=== PATIENT | female | born 1990 | race American Indian/Alaskan Native ===

== ENCOUNTER 2016-04-04 20:47 | Inpatient (IN) | payer MEDICAID, OTHER ==
[2016-04-04] MEDS ORDERED: HALDOL IV ONE (21:05)
[2016-04-04 22:43] LABS: Alanine Aminotransferase 15 units/L (7-56); Albumin 4.6 g/dL (3.9-5); Albumin/Globulin Ratio 1.2 %; Alkaline Phosphatase 66 units/L (35-129); Anion Gap 23 mmol/L; BUN/Creatinine Ratio 14.16; Bilirubin,Total 0.5 mg/dL (0.1-1.2); Blood Urea Nitrogen 17 mg/dL (7-17); Calcium 9.4 mg/dL (8.4-10.2); Carbon Dioxide 25 mmol/L (22-30); Glucose 107 mg/dL (65-100); Sodium 137 mmol/L (137-145); Total Protein 8.4 g/dL (6.3-8.2)
[2016-04-04 22:47] LABS: Potassium 2.4 mmol/L (3.6-5.0)
[2016-04-04] MEDS ORDERED: K-DUR PO ONE (23:01)
[2016-04-04 23:10] LABS: Basophils % (Auto) 0.9 % (0.0-1.8); Eosinophils % (Auto) 0.6 % (0.0-4.3); Hematocrit 40.6 % (30.3-42.9); Hemoglobin 13.4 gm/dl (10.1-14.3); Mean Corpuscular HGB Conc 33 % (30-34); Mean Corpuscular Hemoglobin 27 pg (28-32); Mean Corpuscular Volume 82 fl (79-97); Platelet Count 273 K/mm3 (140-440); Red Blood Count 4.95 M/mm3 (3.65-5.03); Red Cell Distribution Width 16.5 % (13.2-15.2); White Blood Count 4.5 K/mm3 (4.5-11.0)
[2016-04-05 00:01] LABS: Urine Drugs of Abuse Note Disclamer
[2016-04-05] MEDS: KCL 10MEQ/100ML 10 MEQ/100 ML BAG IV SCH ×4 (00:04→08:21)
--- NOTE | 2016-04-05 00:11 | Emergency Department Report ---
ED Altered Mental Status HPI - General Chief Complaint: Altered Mental Status Stated Complaint: ALTERED Time Seen by Provider: 04/04/16 21:00 Source: family, EMS Mode of arrival: Stretcher Limitations: Altered Mental Status - History of Present Illness Initial Comments: 26-year-old female presents to the emergency department via EMS for evaluation of syncope and altered mental status. History is obtained from the patient's family due to her clinical condition. Family states that the patient has not been taking her medications. Patient has a history of breast cancer and has undergone radiation treatment. Recently, they state the patient had a mental breakdown and was admitted to [facility] for approximately one week. Father states that the patient has been sleeping most of today. At approximately 8:00 he attempted to get the patient up to take her medication. Patient was refusing to take her Invega, but instead was reaching for a sleeping pill. Father states that the patient was standing up and then suddenly lost consciousness. Patient regained consciousness shortly thereafter, but was acting confused. EMS was called. They state that the patient was combative. Reportedly, she thought they were taking her for more radiation treatment. Patient was placed in four point restraints by EMS. MD Complaint: altered mental status -: Sudden, This evening Severity: severe Consistency of Symptoms: constant Context: cancer - Related Data Home Medications Medication Instructions Recorded Confirmed Last Taken Escitalopram Oxalate [Lexapro] 5 mg PO QDAY 04/04/16 04/04/16 Unknown Hydrochlorothiazide [HCTZ] 25 mg PO QDAY 04/04/16 04/04/16 Unknown Paliperidone [Invega] 6 mg PO DAILY 04/04/16 04/04/16 Unknown Allergies Allergy/AdvReac Type Severity Reaction Status Date / Time No Known Allergies Allergy Unverified 04/04/16 21:06 ED Review of Systems ROS: Stated complaint: ALTERED Other details as noted in HPI Comment: Unobtainable due to pts medical conditions ED Past Medical Hx - Past Medical History Previous Medical History?: Yes Hx Hypertension: Yes Hx of Cancer: Yes (breast) Hx Psychiatric Treatment: Yes (depression) - Surgical History Past Surgical History?: Yes Additional Surgical History: lumpectomy, breast reduction - Family History Family history: no significant - Social History Smoking Status: Current Some Day Smoker Substance Use Type: None - Medications Home Medications: Home Medications Medication Instructions Recorded Confirmed Last Taken Type Escitalopram Oxalate [Lexapro] 5 mg PO QDAY 04/04/16 04/04/16 Unknown History Hydrochlorothiazide [HCTZ] 25 mg PO QDAY 04/04/16 04/04/16 Unknown History Paliperidone [Invega] 6 mg PO DAILY 04/04/16 04/04/16 Unknown History ED Physical Exam - General Limitations: Altered Mental Status General appearance: alert - Head Head exam: Present: atraumatic, normocephalic - Eye Eye exam: Present: normal appearance, PERRL, EOMI - ENT ENT exam: Present: normal exam, normal orophraynx, mucous membranes moist - Neck Neck exam: Present: normal inspection, full ROM. Absent: tenderness - Respiratory Respiratory exam: Present: normal lung sounds bilaterally. Absent: respiratory distress - Cardiovascular Cardiovascular Exam: Present: normal rhythm, tachycardia, normal heart sounds - GI/Abdominal GI/Abdominal exam: Present: soft, normal bowel sounds. Absent: distended, tenderness - Extremities Exam Extremities exam: Present: normal inspection, full ROM. Absent: tenderness - Back Exam Back exam: Present: normal inspection, full ROM. Absent: tenderness - Neurological Exam Neurological exam: Present: alert, other (patient is moving all extremities but not following commands). Absent: motor sensory deficit - Skin Skin exam: Present: warm, dry, intact ED Course Vital Signs 04/04/16 21:06 Temperature 98.0 F Pulse Rate 123 H Respiratory 22 Rate Blood Pressure 142/101 O2 Sat by Pulse 100 Oximetry - Reevaluation(s) Reevaluation #1: 04/05/16 00:14 Patient was initially placed in four point restraints due to her combative nature. She was administered 2 mg of IV haloperidol. Patient has since become much more cooperative and has been able to be taken out of restraints. Obtaining labs and head CT. Patient will likely need mental health evaluation once medically cleared. - Lab Data Result diagrams: 04/04/16 22:06 04/04/16 22:06 Lab Results 04/04/16 04/04/16 04/04/16 Range/Units 22:06 22:06 22:06 WBC 4.5 (4.5-11.0) K/mm3 RBC 4.95 (3.65-5.03) M/mm3 Hgb 13.4 (10.1-14.3) gm/dl Hct 40.6 (30.3-42.9) % MCV 82 (79-97) fl MCH 27 L (28-32) pg MCHC 33 (30-34) % RDW 16.5 H (13.2-15.2) % Plt Count 273 (140-440) K/mm3 Lymph % (Auto) 11.9 L (13.4-35.0) % [place] % (Auto) 10.8 H (0.0-7.3) % Eos % (Auto) 0.6 (0.0-4.3) % Baso % (Auto) 0.9 (0.0-1.8) % Lymph # 0.5 L (1.2-5.4) K/mm3 [place] # 0.5 (0.0-0.8) K/mm3 Eos # 0.0 (0.0-0.4) K/mm3 Baso # 0.0 (0.0-0.1) K/mm3 Seg Neutrophils % 75.8 H (40.0-70.0) % Seg Neutrophils # 3.4 (1.8-7.7) K/mm3 Sodium 137 (137-145) mmol/L Potassium 2.4 L* (3.6-5.0) mmol/L Chloride 91.0 L (98-107) mmol/L Carbon Dioxide 25 (22-30) mmol/L Anion Gap 23 mmol/L BUN 17 (7-17) mg/dL Creatinine 1.2 (0.7-1.2) mg/dL Estimated GFR > 60 ml/min BUN/Creatinine Ratio 14.16 % Glucose 107 H (65-100) mg/dL Calcium 9.4 (8.4-10.2) mg/dL Total Bilirubin 0.5 (0.1-1.2) mg/dL AST 18 (5-40) units/L ALT 15 (7-56) units/L Alkaline Phosphatase 66 (35-129) units/L Total Protein 8.4 H (6.3-8.2) g/dL Albumin 4.6 (3.9-5) g/dL Albumin/Globulin Ratio 1.2 % Urine Color (Yellow) Urine Turbidity (Clear) Urine pH (5.0-7.0) Ur Specific [place] (1.003-1.030) Urine Protein (Negative) mg/dL Urine Glucose (UA) (Negative) mg/dL Urine Ketones (Negative) mg/dL Urine Blood (Negative) Urine Nitrite (Negative) Urine Bilirubin (Negative) Urine Urobilinogen (<2.0) mg/dL Ur Leukocyte Esterase (Negative) Urine WBC (Auto) (0.0-6.0) /HPF Urine RBC (Auto) (0.0-6.0) /HPF U Epithel Cells (Auto) (0-13.0) /HPF Urine Bacteria (Auto) (Negative) /HPF Hyaline Casts /LPF Urine Mucus /HPF Urine HCG, Qual (Negative) Plasma/Serum Alcohol < 0.01 (0-0.07) gm% 04/04/16 Range/Units Unknown WBC (4.5-11.0) K/mm3 RBC (3.65-5.03) M/mm3 Hgb (10.1-14.3) gm/dl Hct (30.3-42.9) % MCV (79-97) fl MCH (28-32) pg MCHC (30-34) % RDW (13.2-15.2) % Plt Count (140-440) K/mm3 Lymph % (Auto) (13.4-35.0) % [place] % (Auto) (0.0-7.3) % Eos % (Auto) (0.0-4.3) % Baso % (Auto) (0.0-1.8) % Lymph # (1.2-5.4) K/mm3 [place] # (0.0-0.8) K/mm3 Eos # (0.0-0.4) K/mm3 Baso # (0.0-0.1) K/mm3 Seg Neutrophils % (40.0-70.0) % Seg Neutrophils # (1.8-7.7) K/mm3 Sodium (137-145) mmol/L Potassium (3.6-5.0) mmol/L Chloride (98-107) mmol/L Carbon Dioxide (22-30) mmol/L Anion Gap mmol/L BUN (7-17) mg/dL Creatinine (0.7-1.2) mg/dL Estimated GFR ml/min BUN/Creatinine Ratio % Glucose (65-100) mg/dL Calcium (8.4-10.2) mg/dL Total Bilirubin (0.1-1.2) mg/dL AST (5-40) units/L ALT (7-56) units/L Alkaline Phosphatase (35-129) units/L Total Protein (6.3-8.2) g/dL Albumin (3.9-5) g/dL Albumin/Globulin Ratio % Urine Color Yellow (Yellow) Urine Turbidity Clear (Clear) Urine pH 6.0 (5.0-7.0) Ur Specific [place] 1.024 (1.003-1.030) Urine Protein 30 mg/dl (Negative) mg/dL Urine Glucose (UA) Neg (Negative) mg/dL Urine Ketones 20 (Negative) mg/dL Urine Blood Sm (Negative) Urine Nitrite Neg (Negative) Urine Bilirubin Neg (Negative) Urine Urobilinogen < 2.0 (<2.0) mg/dL Ur Leukocyte Esterase Neg (Negative) Urine WBC (Auto) 3.0 (0.0-6.0) /HPF Urine RBC (Auto) 2.0 (0.0-6.0) /HPF U Epithel Cells (Auto) 5.0 (0-13.0) /HPF Urine Bacteria (Auto) 1+ (Negative) /HPF Hyaline Casts 1 /LPF Urine Mucus Few /HPF Urine HCG, Qual Negative (Negative) Plasma/Serum Alcohol (0-0.07) gm% - EKG Data -: EKG Interpreted by Ga EKG shows normal: sinus rhythm, axis, intervals, QRS complexes, ST-T waves Rate: tachycardia When compared to previous EKG there are: previous EKG unavailable Interpretation: other (sinus tachycardia, otherwise normal ECG) - Radiology Data Radiology results: report reviewed, image reviewed CT of the brain shows no acute intracranial abnormality. - Medical Decision Making Lab and imaging results reviewed and discussed with the patient and family. Patient has significant hypokalemia and is refusing oral medication. Potassium is being replaced intravenously. I have spoken with the hospitalist, who will admit the patient for syncope and potassium replacement. - Differential Diagnosis syncope, psychosis, ICH Critical care attestation.: If time is entered above; I have spent that time in minutes in the direct care of this critically ill patient, excluding procedure time. ED Disposition Clinical Impression: Syncope and collapse, Hypokalemia Disposition: OP ADMITTED IP TO THIS HOSP Is pt being admited?: Yes Condition: Stable Instructions: Syncope (ED) Referrals: PRIMARY CARE, [Primary Care Provider] - 3-5 Days Time of Disposition: 00:16
[2016-04-05 00:16] LABS: Bacteria,Urine 1+ /HPF (Negative); Bilirubin,Urine NEG (Negative); Blood,Urine SM (Negative); Ketones,Urine 20 mg/dL (Negative); Leukocyte Esterase,Urine NEG (Negative); Mucus,Urine FEW /HPF; Nitrite,Urine NEG (Negative); Urobilinogen,Urine < 2.0 mg/dL (<2.0)
--- NOTE | 2016-04-05 00:46 | Cat Scan Report ---
FINAL REPORT PROCEDURE: CT HEAD/BRAIN WO CON TECHNIQUE: Computerized tomography of the head was performed without contrast material. HISTORY: Syncope with altered mental status COMPARISON: No prior studies are available for comparison. FINDINGS: Skull and scalp: Normal. Paranasal sinuses: Mild opacification of the ethmoid and right maxillary sinuses.. Ventricles and subarachnoid spaces: Normal. Cerebrum: No evidence of hemorrhage, acute infarction or mass . Cerebellum and brainstem: No evidence of hemorrhage, acute infarction or mass. Vasculature: Normal. Comments: None. IMPRESSION: There is no evidence of an acute intracranial process
[2016-04-05] MEDS ORDERED: TYLENOL PO PRN (01:06)
[2016-04-05] MEDS ORDERED: DULCOLAX PR PRN (01:06)
[2016-04-05] MEDS ORDERED: MILK OF MAGNESIA PO PRN (01:06)
[2016-04-05] MEDS ORDERED: ZOFRAN IV PRN (01:06)
--- NOTE | 2016-04-05 01:11 | History and Physical Report ---
History of Present Illness Date of examination: 04/05/16 History of present illness: 69-year-old woman with a history of breast cancer, major depression, hypertension was brought to the emergency room because while she was at home lying down, she got up to stand out and had a syncopal episode for less than 10 minutes. Patient denies chest pain, palpitation, shortness of breath, cough, abdominal pain, hematochezia, dysuria, frequency, focal weakness, dysarthria, fever chills , polydipsia polyuria, hot or cold intolerance, easy bruisability, or rash or bleeding from mucosal membrane, rhinorrhea, epistaxis, earache, tinnitus, blurry vision, eye discharge, anxiety, depression. Other review of systems negative PAST SURGICAL HISTORY: Right Partial meniscectomy, left breast reduction SOCIAL HISTORY: admit to smoking, alcohol, no drugs FAMILY HISTORY: Hypertension Medications and Allergies Allergies Allergy/AdvReac Type Severity Reaction Status Date / Time No Known Allergies Allergy Unverified 04/04/16 21:06 Home Medications Medication Instructions Recorded Confirmed Last Taken Type Escitalopram Oxalate [Lexapro] 5 mg PO QDAY 04/04/16 04/04/16 Unknown History Hydrochlorothiazide [HCTZ] 25 mg PO QDAY 04/04/16 04/04/16 Unknown History Paliperidone [Invega] 6 mg PO DAILY 04/04/16 04/04/16 Unknown History Active Meds: Active Medications Acetaminophen (Tylenol) 650 mg PO Q4H PRN PRN Reason: Pain MILD(1-3)/Fever >100.5/COTTON Bisacodyl (Dulcolax) 10 mg OK QDAY PRN PRN Reason: Constipation unrelieved by MOM Enoxaparin Sodium (Lovenox) 40 mg SUB-Q QDAY JEFF Potassium Chloride (Kcl 10meq/100ml) 10 meq in 100 mls @ 100 mls/hr IV Q1H JEFF Stop: 04/05/16 03:44 Last Admin: 04/05/16 00:34 Dose: Not Given Potassium Chloride/Sodium Chloride (Ns/Kcl 40meq) 40 meq in 1,000 mls @ 75 mls/ hr IV DIRECT JEFF Magnesium Hydroxide (Milk Of Magnesia) 30 ml PO Q4H PRN PRN Reason: Constipation Ondansetron HCl (Zofran) 4 mg IV Q8H PRN PRN Reason: N/V unrelieved by Reglan Exam - Physical Exam Narrative exam: Gen. appearance: Patient lying in bed, no apparent distress HEENT: Normocephalic, atraumatic, pupils equally round and reactive to light, extraocular movement intact, and no sclericterus,. No JVD or thyromegaly or nodule,neck supple, no carotid bruit ,mucous membranes moist, no exudate or erythema Heart: S1, S2, regular rate and rhythm Lungs: Clear to auscultation bilaterally, breathing comfortable Abdomen: Positive bowel sounds, nontender, nondistended, no organomegaly Extremity: No edema, cyanosis, clubbing Skin: No rash, nodules, warm, dry Neuro: Oriented 3, cranial nerves II-12 intact, speech is fluent, motor and sensory intact - Constitutional Vitals: Temp Pulse Resp BP Pulse Ox 98.0 F 123 H 22 142/101 100 04/04/16 21:06 04/04/16 21:06 04/04/16 21:06 04/04/16 21:06 04/04/16 21:06 Results - Labs CBC & Chem 7: 04/04/16 22:06 04/04/16 22:06 Labs: Abnormal lab results 04/04/16 04/04/16 Range/Units 22:06 22:06 MCH 27 L (28-32) pg RDW 16.5 H (13.2-15.2) % Lymph % (Auto) 11.9 L (13.4-35.0) % [place] % (Auto) 10.8 H (0.0-7.3) % Lymph # 0.5 L (1.2-5.4) K/mm3 Seg Neutrophils % 75.8 H (40.0-70.0) % Potassium 2.4 L* (3.6-5.0) mmol/L Chloride 91.0 L (98-107) mmol/L Glucose 107 H (65-100) mg/dL Total Protein 8.4 H (6.3-8.2) g/dL - Imaging and Cardiology EKG: image reviewed Chest x-ray: image reviewed CT Scan - head: report reviewed Assessment and Plan Syncope Profound hypokalemia History of breast cancer Admits medicine Check cardiac enzymes, d-dimer, orthostatics Replete potassium, start DVT prophylaxis D-dimer elevated, will check CT chest
[2016-04-05] MEDS ORDERED: NS/KCL 40MEQ 40 MEQ/1,000 ML BAG IV SCH (02:00)
[2016-04-05 02:08] LABS: Creatine Kinase 136 units/L (30-135)
[2016-04-05 02:09] LABS: Creatine Kinase MB < 1.0 ng/mL (0.0-4.0)
--- NOTE | 2016-04-05 02:27 | Admit Criteria Form ---
Admission Criteria Documentation: SYNCOPE Clinical Indications for Admission to Inpatient Care ( Place 'X' for any and all applicable criteria): Admission is indicated for syncope and ANY ONE of the following (1)(2)(3)(4)(5) (6)(7) : [ X]I. Inpatient admission required rather than observation care (Also use Syncope: Observation Care Criteria as appropriate) because of ANY ONE of the following: [ ]a) Hemodynamic instability that is severe or persistent [ ]b) Cardiac arrhythmias of immediate concern identified or strongly suspected (eg, needs electrophysiologic study) [ ]c) Acute coronary syndrome identified (Also use Myocardial Infarction or Angina Criteria form ) [ ]d) Structural cardiac disorder (eg, aortic stenosis) suspected as cause that requires immediate correction [ ]e) Respiratory symptoms (eg, dyspnea, tachypnea) that are severe or persistent [ ]f) Neurologic signs or symptoms that are severe or persistent ( eg, stroke, seizures, altered mental status) [ X]g) Severe electrolyte abnormalities requiring inpatient care [ ]h) Supplemental oxygen or respiratory treatment for over 24 hrs that are performable only in acute inpatient setting [ ]i) IV fluid to replace significant ongoing (eg, for over 24 hrs ) losses (>3 L/m2 per day) [ ]j) Continuous intravenous infusion of anticoagulation, platelet inhibitor, vasoactive, or antiarrhythmic medication(15)(16) [ ]k) Pulmonary artery catheter monitoring [ ]l) Temporary pacemaker placement(17) [ ]m) Emergent cardioversion(18) [ ]n) Other conditions, treatment or monitoring requiring inpatient admission [ ]II. Suspicion of imminently dangerous cause (eg, rare causes like pericardial tamponade, pulmonary embolism) [ ]III. Syncope causing severe injury requiring hospitalization Extended stay beyond goal length of stay may be needed for(28) [ ]a) Dangerous arrhythmia(15)(23)(27)(29) [ ]b) Myocardial ischemia [ ]c) Seizure disorder [ ]d) Syncope-related injuries The original [employer] content created by [employer] has been revised. The portions of the content which have been revised are identified through the use of italic text or in bold, and [employer] D [employer] has neither reviewed nor approved the modified material. All other unmodified content is copyright [employer] [facility] [employer]. Please see references footnoted in the original [facility] edition 2016 Admission Criteria Met: Yes
[2016-04-05] MEDS ORDERED: NACL ONE (07:05)
[2016-04-05 08:22] LABS: Creatine Kinase MB 1.1 ng/mL (0.0-4.0)
[2016-04-05 08:23] LABS: Creatine Kinase 151 units/L (30-135)
--- NOTE | 2016-04-05 08:38 | Cat Scan Report ---
FINAL REPORT PROCEDURE: CT ANGIO CHEST TECHNIQUE: Computerized tomographic angiography of the chest was performed after the IV injection of iodinated nonionic contrast including image processing. The image data was postprocessed using 2-dimensional multiplanar reformatted (MPR) and 3-dimensional (MIP and/or volume rendered) techniques. HISTORY: pe protocol. Syncope. Altered mental disturbance COMPARISON: No prior studies are available for comparison. FINDINGS: Heart and pericardium: Normal. Thoracic aorta: Normal. Pulmonary vasculature: Normal. Lymph nodes: No enlarged thoracic lymph nodes. Lungs: Normal. Pleural space: No effusion, thickening, or pneumothorax. Musculoskeletal structures: No significant abnormality. Upper abdominal structures: No significant abnormality. IMPRESSION: Normal Examination
--- NOTE | 2016-04-05 11:01 | Progress Note ---
Assessment and Plan Assessment and plan: 1. Syncope. Follow-up carotid ultrasound and echocardiogram. CT scan of the head negative. 2. Profound hypokalemia. Replete potassium. 3. History of breast cancer 4. Elevated d-dimer. CTA of the chest negative. History Interval history: 69-year-old woman with a history of breast cancer, major depression, hypertension was brought to the emergency room because while she was at home lying down, she got up to stand out and had a syncopal episode for less than 10 minutes. Hospitalist Physical - Constitutional Vitals: Temp Pulse Resp BP Pulse Ox 98.0 F 99 H 16 120/77 97 04/04/16 21:06 04/05/16 08:22 04/05/16 02:03 04/05/16 02:03 04/05/16 09:52 General appearance: Present: no acute distress, well-nourished - EENT Eyes: Present: PERRL, EOM intact ENT: hearing intact, clear oral mucosa, dentition normal - Neck Neck: Present: supple, normal ROM - Respiratory Respiratory effort: normal Respiratory: bilateral: CTA - Cardiovascular Rhythm: regular Heart Sounds: Present: S1 & S2. Absent: gallop, rub - Extremities Extremities: no ischemia, No edema, Full ROM - Abdominal General gastrointestinal: soft, non-tender, non-distended, normal bowel sounds - Integumentary Integumentary: Present: clear, warm, dry - Neurologic Neurologic: CNII-XII intact, moves all extremities Results - Labs CBC & Chem 7: 04/04/16 22:06 04/04/16 22:06 Labs: Laboratory Last Values WBC 4.5 K/mm3 (4.5-11.0) 04/04/16 22:06 RBC 4.95 M/mm3 (3.65-5.03) 04/04/16 22:06 Hgb 13.4 gm/dl (10.1-14.3) 04/04/16 22:06 Hct 40.6 % (30.3-42.9) 04/04/16 22:06 MCV 82 fl (79-97) 04/04/16 22:06 MCH 27 pg (28-32) L 04/04/16 22:06 MCHC 33 % (30-34) 04/04/16 22:06 RDW 16.5 % (13.2-15.2) H 04/04/16 22:06 Plt Count 273 K/mm3 (140-440) 04/04/16 22:06 Lymph % (Auto) 11.9 % (13.4-35.0) L 04/04/16 22:06 [place] % (Auto) 10.8 % (0.0-7.3) H 04/04/16 22:06 Eos % (Auto) 0.6 % (0.0-4.3) 04/04/16 22:06 Baso % (Auto) 0.9 % (0.0-1.8) 04/04/16 22:06 Lymph # 0.5 K/mm3 (1.2-5.4) L 04/04/16 22:06 [place] # 0.5 K/mm3 (0.0-0.8) 04/04/16 22:06 Eos # 0.0 K/mm3 (0.0-0.4) 04/04/16 22:06 Baso # 0.0 K/mm3 (0.0-0.1) 04/04/16 22:06 Seg Neutrophils % 75.8 % (40.0-70.0) H 04/04/16 22:06 Seg Neutrophils # 3.4 K/mm3 (1.8-7.7) 04/04/16 22:06 D-Dimer 329.25 ng/mlDDU (0-234) H 04/05/16 01:27 Sodium 137 mmol/L (137-145) 04/04/16 22:06 Potassium 2.4 mmol/L (3.6-5.0) L* 04/04/16 22:06 Chloride 91.0 mmol/L (98-107) L 04/04/16 22:06 Carbon Dioxide 25 mmol/L (22-30) 04/04/16 22:06 Anion Gap 23 mmol/L 04/04/16 22:06 BUN 17 mg/dL (7-17) 04/04/16 22:06 Creatinine 1.2 mg/dL (0.7-1.2) 04/04/16 22:06 Estimated GFR > 60 ml/min 04/04/16 22:06 BUN/Creatinine Ratio 14.16 % 04/04/16 22:06 Glucose 107 mg/dL (65-100) H 04/04/16 22:06 Calcium 9.4 mg/dL (8.4-10.2) 04/04/16 22:06 Total Bilirubin 0.5 mg/dL (0.1-1.2) 04/04/16 22:06 AST 18 units/L (5-40) 04/04/16 22:06 ALT 15 units/L (7-56) 04/04/16 22:06 Alkaline Phosphatase 66 units/L (35-129) 04/04/16 22:06 Total Creatine Kinase 151 units/L (30-135) H 04/05/16 07:16 CK-MB (CK-2) 1.1 ng/mL (0.0-4.0) 04/05/16 07:16 CK-MB (CK-2) Rel Index 0.7 (0-4) 04/05/16 07:16 Troponin T < 0.010 ng/mL (0.00-0.029) 04/05/16 07:16 Total Protein 8.4 g/dL (6.3-8.2) H 04/04/16 22:06 Albumin 4.6 g/dL (3.9-5) 04/04/16 22:06 Albumin/Globulin Ratio 1.2 % 04/04/16 22:06 Urine Color Yellow (Yellow) 04/04/16 Unknown Urine Turbidity Clear (Clear) 04/04/16 Unknown Urine pH 6.0 (5.0-7.0) 04/04/16 Unknown Ur Specific [place] 1.024 (1.003-1.030) 04/04/16 Unknown Urine Protein 30 mg/dl mg/dL (Negative) 04/04/16 Unknown Urine Glucose (UA) Neg mg/dL (Negative) 04/04/16 Unknown Urine Ketones 20 mg/dL (Negative) 04/04/16 Unknown Urine Blood Sm (Negative) 04/04/16 Unknown Urine Nitrite Neg (Negative) 04/04/16 Unknown Urine Bilirubin Neg (Negative) 04/04/16 Unknown Urine Urobilinogen < 2.0 mg/dL (<2.0) 04/04/16 Unknown Ur Leukocyte Esterase Neg (Negative) 04/04/16 Unknown Urine WBC (Auto) 3.0 /HPF (0.0-6.0) 04/04/16 Unknown Urine RBC (Auto) 2.0 /HPF (0.0-6.0) 04/04/16 Unknown U Epithel Cells (Auto) 5.0 /HPF (0-13.0) 04/04/16 Unknown Urine Bacteria (Auto) 1+ /HPF (Negative) 04/04/16 Unknown Hyaline Casts 1 /LPF 04/04/16 Unknown Urine Mucus Few /HPF 04/04/16 Unknown Urine HCG, Qual Negative (Negative) 04/04/16 Unknown Urine Opiates Screen Presumptive negative 04/04/16 Unknown Urine Methadone Screen Presumptive negative 04/04/16 Unknown Ur Barbiturates Screen Presumptive negative 04/04/16 Unknown Ur Phencyclidine Scrn Presumptive negative 04/04/16 Unknown Ur Amphetamines Screen Presumptive negative 04/04/16 Unknown U Benzodiazepines Scrn Presumptive negative 04/04/16 Unknown Urine Cocaine Screen Presumptive negative 04/04/16 Unknown U Marijuana (THC) Screen Presumptive negative 04/04/16 Unknown Drugs of Abuse Note Disclamer 04/04/16 Unknown Plasma/Serum Alcohol < 0.01 gm% (0-0.07) 04/04/16 22:06
[2016-04-05] MEDS: LOVENOX SUB-Q SCH (12:28)
[2016-04-06 04:06] LABS: Hematocrit 39.7 % (30.3-42.9); Hemoglobin 12.6 gm/dl (10.1-14.3); Mean Corpuscular HGB Conc 32 % (30-34); Mean Corpuscular Hemoglobin 27 pg (28-32); Mean Corpuscular Volume 84 fl (79-97); Platelet Count 228 K/mm3 (140-440); Red Blood Count 4.73 M/mm3 (3.65-5.03)
[2016-04-06 04:20] LABS: Anion Gap 17 mmol/L; Blood Urea Nitrogen 12 mg/dL (7-17); Calcium 8.6 mg/dL (8.4-10.2); Carbon Dioxide 24 mmol/L (22-30); Chloride 101.6 mmol/L (98-107); Glucose 79 mg/dL (65-100); Potassium 3.8 mmol/L (3.6-5.0); Sodium 139 mmol/L (137-145)
[2016-04-06 06:40] LABS: Anisocytosis 1+; Basophils % (Manual) 0 % (0.0-1.8); Blastocytes % (Manual) 0 %; Eosinophils % (Manual) 0 % (0.0-4.3); Hypochromasia Rare
[2016-04-06 06:41] LABS: Diff Status Complete
[2016-04-06] MEDS: LOVENOX SUB-Q SCH (10:30)
--- NOTE | 2016-04-06 11:13 | Discharge Summary ---
Providers - Providers Date of Admission: 04/05/16 01:06 Date of discharge: 04/06/16 Attending physician: CHAYA MEYER Primary care physician: CHARITO GUPTA MD Hospitalization Reason for admission: syncope Condition: Stable Hospital course: 69-year-old woman with a history of breast cancer, major depression, hypertension was brought to the emergency room because of a syncopal episode. Patient was also noted to have profound hypokalemia with potassium of 2.4. Patient had elevated d-dimer as well. Patient underwent CT chest which revealed no evidence of pulmonary embolism. Patient's potassium was repleted. Patient underwent carotid ultrasound which revealed less than 50% stenosis bilaterally. Echocardiogram has been done and the report is pending. I suspect etiology was vasovagal in nature. Patient to follow-up echocardiogram as an outpatient. Patient feels well and is in place without difficulty or dizziness. Dedicated discharge time 35 minutes. Disposition: DISCHARGED TO HOME OR SELFCARE - Discharge Diagnoses (1) Hypokalemia Status: Acute (2) Syncope and collapse Status: Acute Core Measure Documentation - Palliative Care Palliative Care/ Comfort Measures: Not Applicable - Core Measures Any of the following diagnoses?: none Exam - Constitutional Vitals: Temp Pulse Resp BP Pulse Ox 97.8 F 64 20 137/83 100 04/06/16 08:10 04/06/16 08:10 04/06/16 08:10 04/06/16 08:10 04/06/16 08:10 General appearance: Present: no acute distress, well-nourished - EENT Eyes: Present: PERRL ENT: hearing intact, clear oral mucosa - Neck Neck: Present: supple, normal ROM - Respiratory Respiratory effort: normal Respiratory: bilateral: CTA - Cardiovascular Heart Sounds: Present: S1 & S2. Absent: rub, click - Extremities Extremities: pulses symmetrical, No edema Peripheral Pulses: within normal limits - Abdominal General gastrointestinal: Present: soft, non-tender, non-distended, normal bowel sounds Female genitourinary: Present: normal - Integumentary Integumentary: Present: clear, warm, dry - Musculoskeletal Musculoskeletal: gait normal, strength equal bilaterally - Psychiatric Psychiatric: appropriate mood/affect, intact judgment & insight - Neurologic Neurologic: CNII-XII intact, moves all extremities Plan Activity: no restrictions Weight Bearing Status: Full Weight Bearing Diet: regular Follow up with: PRIMARY CAREMD [Primary Care Provider] - 3-5 Days Prescriptions: Escitalopram Oxalate [Lexapro] 5 mg PO QDAY #30 tablet Hydrochlorothiazide [HCTZ] 25 mg PO QDAY #30 tablet
[2016-04-06 12:42] VITALS: BP 120/77
== END 2016-04-06 15:30 | disposition home or self-care (01) | DRG 641 ==
LOC: ED 20:47 → 4A 04-05 01:06
PROVIDERS: ADMIT Internal Medicine; ATTEND Hospitalist
DX: E87.6 Hypokalemia (principal); R55 Syncope and collapse; F32.9 Major depressive disorder, single episode, unspecified; I10 Essential (primary) hypertension; Z82.49 Family history of ischemic heart disease and other diseases of the circulatory system; Z85.3 Personal history of malignant neoplasm of breast
CPT/HCPCS: 36415; 70450; 71275; 80048; 80053; 80307; 80320; 81001; 81025; 82550; 82553; 84132; 84484; 85007; 85025; 85379; 93005; 93010; 93306; 93880; 96372; 96374; 96375; G0480; J1630; J1650; J3480; Q9967

== ENCOUNTER 2018-11-30 10:24 | Outpatient (CLI) | payer MEDICAID ==
--- NOTE | 2018-11-30 11:41 | Mammography Report ---
DIGITAL SCREENING MAMMOGRAM WITH CAD, 11/30/2018 INDICATION: Routine screening mammography. 28-year-old breast cancer survivor status post right parti al mastectomy with radiation therapy in 2016 and 2017. She also had a left reduction mammoplasty. TECHNIQUE: Digital bilateral 2D mammography was obtained in the craniocaudal and mediolateral obliq ue projections. She was shielded for the examination because of the possibility of . This ex amination was interpreted with the benefit of Computer-Aided Detection analysis. COMPARISON: 05/24/2015 FINDINGS: Breast Density: There are scattered areas of fibroglandular density. There is no evidence of dominant mass, suspicious calcifications or architectural distortion in eithe r breast. Moderate bilateral nonspecific skin thickening. Benign right postsurgical scar. IMPRESSION: No mammographic evidence of malignancy. Follow up recommendation: Routine yearly BI-RADS Category 2: Benign. A "normal" or negative report should not discourage follow up or biopsy of a clinically significant f inding. A written summary of these findings will be mailed to the patient. The patient will be entered into a mammography reporting system which will generate a reminder letter for the patient's next appointmen t at the appropriate interval. The [employer] recommends yearly mammograms starting at age 40 and continuing as l heri as a woman is in good health. Breast MRI is recommended for women with an approximate 20-25% or greater lifetime risk of breast cancer, including women with a strong family history of breast or ova kina cancer or who have been treated for Hodgkin's disease. Signer Name: Brian Prince MD Signed: 11/30/2018 11:36 AM Workstation Name: [id number]
== END 2018-11-30 10:25 | disposition home or self-care (01) ==
LOC: SPVWC 10:24
PROVIDERS: ATTEND Surgery
DX: Z85.3 Personal history of malignant neoplasm of breast (principal); Z90.11 Acquired absence of right breast and nipple; Z92.3 Personal history of irradiation; Z87.898 Personal history of other specified conditions
CPT/HCPCS: 77066

== ENCOUNTER 2019-01-13 10:02 | Outpatient (CLI) | payer MEDICAID ==
--- NOTE | 2019-01-17 16:14 | Magnetic Resonance Report ---
BILATERAL BREAST MR WITHOUT AND WITH GADOLINIUM INDICATION: Cancer survivor status post right partial mastectomy and bilateral reduction mammoplasty . She completed adjuvant radiation therapy but declined chemotherapy. She is taking tamoxifen. COMPARISONS: 11/30/2018 bilateral mammogram. TECHNIQUE: Axial 1.0 mm T1 without, axial high-resolution 2.0 mm T2 and axial 1.0 mm dynamic vibrant high-resolution postcontrast T1 fat saturation sequences on a 1.5 Valarie magnet. The examination was p erformed with an 8-channel dedicated [place] breast coil. Post-processing with CAD and subtraction was performed on an [employer] workstation. 19.0 cc of MultiHance was injected without incident for the c ontrast portion of the exam. Consent was obtained prior to the administration of the contrast. FINDINGS: RIGHT BREAST: Mild background parenchymal enhancement. No mass or suspicious enhancement. Minimally e nhancing lower outer postsurgical scar. Moderate skin thickening of the breast and enhancement of the skin. No suspicious lymph nodes. A right level 1 axillary lymph node with a biopsy clip. LEFT BREAST: Minimal background parenchymal enhancement. No mass or suspicious enhancement. No suspic ious lymph nodes. IMPRESSION: Benign posttreatment changes in the right breast and no suspicious findings. Recommend ro utine mammographic screening. BI-RADS Category 2: Benign Signer Name: Brian Prince MD Signed: 01/17/2019 4:09 PM Workstation Name: [id number]
== END 2019-01-13 10:03 | disposition home or self-care (01) ==
LOC: SPVIMAG 10:02
PROVIDERS: ATTEND Surgery
DX: Z09 Encounter for follow-up examination after completed treatment for conditions other than malignant neoplasm (principal); Z85.3 Personal history of malignant neoplasm of breast
CPT/HCPCS: A9577; C8908; 77049

== ENCOUNTER 2019-12-06 08:00 | Outpatient (CLI) | payer MEDICAID ==
--- NOTE | 2019-12-09 08:20 | Mammography Report ---
DIGITAL SCREENING MAMMOGRAM WITH CAD, 12/08/2019 INDICATION: Routine screening mammography. TECHNIQUE: Digital bilateral 2D mammography was obtained in the craniocaudal and mediolateral obliq ue projections. This examination was interpreted with the benefit of Computer-Aided Detection analysi s. COMPARISON: 11/30/2018. FINDINGS: Breast Density: There are scattered areas of fibroglandular density. There is no evidence of dominant mass, suspicious calcifications or architectural distortion in eithe r breast. Post therapy change right breast. IMPRESSION: Follow up recommendation: Routine yearly BI-RADS Category 2: Benign. A "normal" or negative report should not discourage follow up or biopsy of a clinically significant f inding. A written summary of these findings will be mailed to the patient. The patient will be entered into a mammography reporting system which will generate a reminder letter for the patient's next appointmen t at the appropriate interval. The [employer] recommends yearly mammograms starting at age 40 and continuing as l heri as a woman is in good health. Breast MRI is recommended for women with an approximate 20-25% or greater lifetime risk of breast cancer, including women with a strong family history of breast or ova kina cancer or who have been treated for Hodgkin's disease. Signer Name: Josué Leach MD Signed: 12/09/2019 8:16 AM Workstation Name: [id number]
== END 2019-12-06 08:01 | disposition home or self-care (01) ==
LOC: SPVWC 08:00
PROVIDERS: ATTEND Surgery
DX: Z12.31 Encounter for screening mammogram for malignant neoplasm of breast (principal)
CPT/HCPCS: 77067

== ENCOUNTER 2019-12-13 10:46 | Outpatient (CLI) | payer MEDICAID ==
--- NOTE | 2019-12-13 12:27 | Ultrasound Report ---
ULTRASOUND BREAST RIGHT LIMITED, 12/13/2019 CLINICAL INFORMATION / INDICATION: RIGHT BREAST PAIN- H/O RIGHT BREAST CANCER. TECHNIQUE: Targeted ultrasound evaluation was performed of the area of interest. COMPARISON: Bilateral mammography 12/06/19. FINDINGS: There is no evidence of a mass, posterior shadowing, distortion or other abnormality. Further evaluat ion of any palpable abnormality should be based on clinical findings.. IMPRESSION: No sonographic evidence of malignancy. Follow up recommendation: Routine yearly BI-RADS Category 1: Negative. A normal or "negative" report should not preclude biopsy or follow-up of a clinically suspicious find ing. Signer Name: Froylan Gill MD Signed: 12/13/2019 12:22 PM Workstation Name: [id number]
== END 2019-12-13 10:47 | disposition home or self-care (01) ==
LOC: SPVWC 10:46
PROVIDERS: ATTEND Surgery
DX: N64.4 Mastodynia (principal); Z85.3 Personal history of malignant neoplasm of breast

== ENCOUNTER 2020-04-17 15:09 | Outpatient (CLI) | payer MEDICAID ==
--- NOTE | 2020-04-17 21:00 | Ultrasound Report ---
Pelvic Ultrasound HISTORY: PELVIC ABSCESS IN FEMALE N73.9. TECHNIQUE: Grayscale and color imaging performed. COMPARISON: None FINDINGS: Uterus measures 8.4 x 4.6 x 7.4 cm with endometrial echo complex measuring 6 mm. Both ovari es are unremarkable with preserved blood flow. No pelvic free fluid. No abscess identified. IMPRESSION: Unremarkable exam. Signer Name: Jose L Metz MD Signed: 04/17/2020 8:56 PM Workstation Name: [id number]
== END 2020-04-17 15:10 | disposition home or self-care (01) ==
LOC: SPVWC 15:09
PROVIDERS: ATTEND Internal Medicine Gastroenterology
DX: N73.9 Female pelvic inflammatory disease, unspecified (principal)
CPT/HCPCS: 76856

== ENCOUNTER 2020-06-14 10:43 | Outpatient (CLI) | payer MEDICAID ==
--- NOTE | 2020-06-14 14:30 | Mammography Report ---
LEFT DIGITAL DIAGNOSTIC MAMMOGRAM WITH CAD , 06/14/2020 LEFT LIMITED BREAST ULTRASOUND CLINICAL INFORMATION / INDICATION: The patient reports left breast pain, redness and swelling for one week. She is currently on antibiotic therapy and reports symptoms have improved. The patient has a p ersonal history of right breast cancer treated with lumpectomy and radiation. TECHNIQUE: Digital left mammographic imaging was performed. Limited ultrasound was performed. This ex amination was interpreted with the benefit of Computer-Aided Detection (CAD) analysis. COMPARISON: Bilateral mammogram, 12/06/2019 FINDINGS: Breast Density: There are scattered areas of fibroglandular density. MAMMOGRAPHIC FINDINGS: No dominant mass, suspicious calcifications, or architectural distortion in th e left breast. Post reduction changes are noted. ULTRASOUND FINDINGS: Targeted ultrasound evaluation was performed of the area of interest. Sonograp hic evaluation of the patient's area of pain and redness from the 7:00 to the 9:00 position demonstra elena no evidence of suspicious solid mass, shadowing or fluid collection. IMPRESSION: No focal abnormality to account for the patient's left breast pain and redness. Therefore , clinical correlation is recommended. Follow up recommendation: Clinical exam BI-RADS Category 2: Benign. A "normal" or negative report should not discourage follow up or biopsy of a clinically significant f inding. A written summary of these findings will be mailed to the patient. The patient will be entered into a mammography reporting system which will generate a reminder letter for the patient's next appointmen t at the appropriate interval. According to the [employer], yearly mammograms are recommended starting at age 40 and continuing as long as a woman is in good health. Breast MRI is recommended for women with an marcella roximately 20-25% or greater lifetime risk of breast cancer, including women with a strong family his tory of breast or ovarian cancer and women who have been treated for Hodgkin's disease. Signer Name: Lupe Jeter MD Signed: 06/14/2020 2:26 PM Workstation Name: [id number]
== END 2020-06-14 10:44 | disposition home or self-care (01) ==
LOC: SPVWC 10:43
PROVIDERS: ATTEND Surgery
DX: N64.4 Mastodynia (principal)